=== PATIENT | female | born 1935 | race Caucasian/White ===

== ENCOUNTER 2018-12-15 14:15 | Inpatient (IN) ==
[2018-12-15 15:51] LABS: Basophils % 0.1 % (0.0-0.8); Eosinophils % 0.2 % (0.00-10.9); Hematocrit 32.3 VOL% (35.7-47.0); Hemoglobin 10.1 GM/DL (12.0-16.0); Immature Granulocytes % 0.7 %; Immature Granulocytes Absolute 0.15 #; Lymphocytes # 1.5 10*3/uL (1.4-4.0); Lymphocytes % 7.4 % (21.3-54.2); Mean Corpuscular HGB Conc 31.3 GM/DL (32-36); Mean Corpuscular Volume 76.2 FL (87-102); Neutrophils % 89.6 % (38.7-73.9); Platelet Count 479 T/CUMM (130-400); Red Blood Count 4.24 MC/CUMM (3.8-5.5); Red Cell Distribution Width 18.4 % (9.3-17.3); White Blood Count 20.4 T/CUMM (4-12)
[2018-12-15 15:52] LABS: Apearance,Urine CLOUDY (Clear); Bacteria,Urine Many /HPF (Few); Bilirubin,Urine Small mg/dL (Negative); Blood, Urine Small mg/dL (Negative); Glucose,Urine (UA) Negative (Negative); Hyaline Casts,Urine 67 /LPF (0-3); Ketones,Urine 5 mg/dL (Negative); Mucus,Urine Few /LPF (Occasional); Nitrite,Urine Positive (Negative); Protein,Urine 30 MG/DL; RBC,Urine 21 /HPF (0-4); Urine Color Amber (Yellow); Urine Specific Gravity 1.021 (1.001-1.035); WBC,Urine 113 /HPF (0-6)
[2018-12-15 16:17] LABS: Calcium 6.3 MG/DL (8.5-10.1); Osmolality,Calculated 290.4 MOS/KG (273-304)
[2018-12-15 16:26] LABS: Lymphocytes 8 % (20-55); Segmented Neutrophils 91 % (50-85); Total Cells Counted 100
[2018-12-15 16:27] LABS: Hypochromasia Slight; Microcytosis Slight; Platelet Estimate Adequate
[2018-12-15] MEDS ORDERED: cefTRIAXone 1,000 MG in SODIUM CHLORIDE 0.9% 100 ML IV STA (16:28)
[2018-12-15] MEDS ORDERED: ONDANSETRON 4 MG/2 ML VIAL IV PRN (17:05)
[2018-12-15] MEDS ORDERED: DEXTROSE 10% 250 ML BAG IV PRN (17:52)
[2018-12-15] MEDS ORDERED: GLUCAGON 1 MG VIAL IM PRN (17:52)
[2018-12-15] MEDS ORDERED: INFLUENZA VIRUS VACCINE 0.5 ML SYRINGE IM ONE (18:45)
[2018-12-15] MEDS: SODIUM CHLORIDE 0.9% 1,000 ML IV SCH (22:22)
[2018-12-16] MEDS: ACETAMINOPHEN 325 MG TABLET PO PRN (00:38)
[2018-12-16 03:58] LABS: Eosinophils # 0.1 10*3/uL (0.0-0.87); Eosinophils % 0.6 % (0.00-10.9); Hematocrit 27.9 VOL% (35.7-47.0); Hemoglobin 8.8 GM/DL (12.0-16.0); Immature Granulocytes % 0.5 %; Immature Granulocytes Absolute 0.08 #; Lymphocytes # 1.7 10*3/uL (1.4-4.0); Lymphocytes % 10.2 % (21.3-54.2); Mean Corpuscular HGB Conc 31.5 GM/DL (32-36); Mean Corpuscular Volume 75.8 FL (87-102); Mean Platelet Volume 9.3 FL (9.6-12.0); Monocytes % 3.3 % (1.7-12.7); Neutrophils % 85.4 % (38.7-73.9); Platelet Count 398 T/CUMM (130-400); Red Blood Count 3.68 MC/CUMM (3.8-5.5); White Blood Count 16.1 T/CUMM (4-12)
[2018-12-16 04:33] LABS: % Iron Saturation 15.3 % (18-50); Ferritin 267.4 ng/ml (8-252)
[2018-12-16 04:41] LABS: Albumin 1.8 G/DL (3.4-5.0); Bilirubin,Total 0.4 MG/DL (0.2-1.0); Risk Ratio 2.56; Thyroid Stimulating Hormone 1.94 uIU/ml (0.358-3.74); Total Protein 6.3 G/DL (6.4-8.3); VLDL CHOLESTEROL 34.2 MG/DL
[2018-12-16 04:44] LABS: Calcium 5.8 MG/DL (8.5-10.1)
[2018-12-16] MEDS ORDERED: CALCIUM GLUCONATE 1,000 MG in SODIUM CHLORIDE 0.9% 100 ML IV ONE (06:00)
[2018-12-16] MEDS: LEVOTHYROXINE 100 MCG TABLET PO SCH (06:05)
[2018-12-16] MEDS: INSULIN LISPRO 100 UNIT/ML SUBCUT SCH ×5 (07:12→23:21)
[2018-12-16] MEDS ORDERED: POTASSIUM CHLORIDE RIDER 20 MEQ in PREMIX 1 EACH IV PRN (08:16)
[2018-12-16] MEDS ORDERED: MAGNESIUM SULF RIDER 4 GM in PREMIX 1 EACH IV PRN (08:18)
[2018-12-16] MEDS ORDERED: ATENOLOL 25 MG TABLET PO SCH (09:00)
[2018-12-16] MEDS ORDERED: hydroCHLOROthiazide 12.5 MG CAPSULE PO SCH (09:00)
[2018-12-16] MEDS ORDERED: TERAZOSIN 10 MG CAPSULE PO SCH (09:00)
[2018-12-16] MEDS ORDERED: amLODIPine 2.5 MG TABLET PO SCH (09:00)
[2018-12-16] MEDS ORDERED: cefTRIAXone 1,000 MG in SYRINGE 1 EACH IV SCH (09:00)
[2018-12-16] MEDS: ASPIRIN EC 81 MG TABLET PO SCH (09:11)
[2018-12-16] MEDS: MULTIVITAMIN (CENTRUM) TABLET PO SCH (09:11)
[2018-12-16] MEDS: SIMVASTATIN 80 MG TABLET PO SCH (09:11)
[2018-12-16] MEDS: PANTOPRAZOLE 40 MG TABLET PO SCH (09:11)
[2018-12-16] MEDS: SERTRALINE 50 MG TABLET PO SCH (09:12)
[2018-12-16] MEDS: POTASSIUM CHLORIDE 20 MEQ TABLET PO PRN ×2 (09:13→14:07)
[2018-12-16] MEDS: CALCIUM (CARBONATE)/VITAMIN D 500 MG-200 UNIT TABLET PO SCH ×2 (09:17→23:20)
[2018-12-16] MEDS: SODIUM CHLORIDE 0.9% 1,000 ML IV SCH ×2 (09:17→19:15)
[2018-12-16] MEDS: ENOXAPARIN 30 MG/0.3 ML SYRINGE SUBCUT SCH (12:01)
[2018-12-16] MEDS ORDERED: BISACODYL 5 MG TABLET PO ONE (13:55)
[2018-12-16] MEDS ORDERED: DILTIAZEM 50 MG/10 ML VIAL IV STA (14:47)
[2018-12-16] MEDS ORDERED: SODIUM CHLORIDE 0.9% 1,000 ML IV ONE (14:48)
[2018-12-16 14:50] LABS: Calcium 6.2 MG/DL (8.5-10.1)
[2018-12-16] MEDS ORDERED: dilTIAZem Drip 125 MG/125 ML PREMIX IV ONE (15:12)
[2018-12-16 15:17] LABS: Basophils % 0.1 % (0.0-0.8); Eosinophils # 0.1 10*3/uL (0.0-0.87); Eosinophils % 0.6 % (0.00-10.9); Hematocrit 28.9 VOL% (35.7-47.0); Hemoglobin 8.9 GM/DL (12.0-16.0); Immature Granulocytes % 0.7 %; Immature Granulocytes Absolute 0.11 #; Lymphocytes # 1.7 10*3/uL (1.4-4.0); Lymphocytes % 11.1 % (21.3-54.2); Mean Corpuscular HGB Conc 30.8 GM/DL (32-36); Mean Corpuscular Volume 77.1 FL (87-102); Mean Platelet Volume 9.5 FL (9.6-12.0); Monocytes % 3.3 % (1.7-12.7); Neutrophils % 84.2 % (38.7-73.9); Platelet Count 378 T/CUMM (130-400); Red Blood Count 3.75 MC/CUMM (3.8-5.5); Red Cell Distribution Width 18.4 % (9.3-17.3); White Blood Count 15.4 T/CUMM (4-12)
[2018-12-16] MEDS ORDERED: diphenhydrAMINE CAP 25 MG CAPSULE PO PRN (15:17)
[2018-12-16] MEDS ORDERED: dilTIAZem Drip 125 MG/125 ML PREMIX IV SCH (15:30)
[2018-12-16] MEDS ORDERED: NOREPINEPHRINE 4 MG/4 ML VIAL IV ONE ×2 (15:53→17:57)
[2018-12-16] MEDS: NOREPINEPHRINE 8 MG in SODIUM CHLORIDE 0.9% 242 ML IV PRN ×3 (15:57→23:30)
[2018-12-16] MEDS ORDERED: MORPHINE 4 MG/1 ML VIAL IV PRN (16:06)
[2018-12-16] MEDS ORDERED: SODIUM CHLORIDE 0.9% 2,200 ML IV ONE (16:12)
[2018-12-16] MEDS ORDERED: AMIODARONE INJ 150 MG in DEXTROSE 5% 100 ML IV ONE (16:43)
[2018-12-16] MEDS ORDERED: ALBUMIN 25% 12.5 GM in PREMIX 1 EACH IV ONE (16:43)
[2018-12-16] MEDS ORDERED: ALBUMIN 5% 12.5 GM/250 ML VIAL IV ONE (16:44)
[2018-12-16] MEDS ORDERED: ALBUMIN 5% 12.5 GM in PREMIX 1 EACH IV ONE (16:54)
[2018-12-16] MEDS ORDERED: AMIODARONE INJ 450 MG in DEXTROSE 5% 241 ML IV SCH (17:00)
[2018-12-16] MEDS ORDERED: VASOPRESSIN 100 UNITS in SODIUM CHLORIDE 0.9% 95 ML IV PRN (18:03)
[2018-12-16] MEDS ORDERED: LACTATED RINGERS 1,000 ML IV ONE (18:03)
[2018-12-16] MEDS: MEROPENEM 500 MG in SODIUM CHLORIDE 0.9% 100 ML IV SCH (19:19)
[2018-12-16] MEDS: VANCOMYCIN INJ 1,250 MG in SODIUM CHLORIDE 0.9% 250 ML IV SCH (19:19)
[2018-12-16] MEDS ORDERED: HEPARIN/NACL 0.9% 2 UNITS/ML 500 ML IV ONE (20:40)
[2018-12-16] MEDS: MAGNESIUM OXIDE 400 MG TABLET PO SCH (23:20)
[2018-12-16] MEDS: carvediloL 3.125 MG TABLET PO SCH (23:21)
[2018-12-16] MEDS: AMIODARONE INJ 450 MG in DEXTROSE 5% 241 ML IV SCH (23:24)
[2018-12-16] MEDS: HEPARIN/NACL 0.9% 2 UNITS/ML 500 ML IV SCH (23:25)
[2018-12-17] MEDS: MEROPENEM 500 MG in SODIUM CHLORIDE 0.9% 100 ML IV SCH ×3 (03:13→18:18)
[2018-12-17 04:59] LABS: Basophils # 0.1 10*3/uL (0.0-0.2); Basophils % 0.2 % (0.0-0.8); Hematocrit 29.5 VOL% (35.7-47.0); Hemoglobin 8.9 GM/DL (12.0-16.0); Immature Granulocytes % 0.6 %; Immature Granulocytes Absolute 0.19 #; Lymphocytes # 1.1 10*3/uL (1.4-4.0); Lymphocytes % 3.5 % (21.3-54.2); Mean Corpuscular HGB Conc 30.2 GM/DL (32-36); Mean Corpuscular Volume 79.3 FL (87-102); Monocytes % 1.7 % (1.7-12.7); Platelet Count 384 T/CUMM (130-400); Red Blood Count 3.72 MC/CUMM (3.8-5.5); Red Cell Distribution Width 18.2 % (9.3-17.3); White Blood Count 30.4 T/CUMM (4-12)
[2018-12-17] MEDS: NOREPINEPHRINE 8 MG in SODIUM CHLORIDE 0.9% 242 ML IV PRN ×2 (05:03→14:04)
[2018-12-17 05:26] LABS: Albumin 1.6 G/DL (3.4-5.0); Bilirubin,Total 0.9 MG/DL (0.2-1.0); Total Protein 4.5 G/DL (6.4-8.3)
[2018-12-17 05:27] LABS: Calcium 5.2 MG/DL (8.5-10.1)
[2018-12-17 05:33] LABS: Band Neutrophils 2 % (0-10); Burr Cells Slight; Hypochromasia 1+; Lymphocytes 2 % (20-55); Ovalocytes Slight; Platelet Estimate Adequate; Segmented Neutrophils 95 % (50-85); Total Cells Counted 100
[2018-12-17] MEDS: SODIUM CHLORIDE 0.9% 1,000 ML IV SCH ×2 (05:51→15:51)
[2018-12-17] MEDS: LEVOTHYROXINE 100 MCG TABLET PO SCH (06:05)
[2018-12-17] MEDS: POTASSIUM CHLORIDE 20 MEQ TABLET PO PRN (06:07)
[2018-12-17] MEDS: AMIODARONE INJ 450 MG in DEXTROSE 5% 241 ML IV SCH ×2 (06:14→13:15)
[2018-12-17] MEDS ORDERED: CALCIUM GLUCONATE 1,000 MG in SODIUM CHLORIDE 0.9% 100 ML IV ONE (06:15)
[2018-12-17] MEDS: MAGNESIUM SULF RIDER 2 GM in PREMIX 1 EACH IV PRN (06:19)
[2018-12-17] MEDS: MAGNESIUM OXIDE 400 MG TABLET PO SCH ×2 (08:33→21:31)
[2018-12-17] MEDS: INSULIN LISPRO 100 UNIT/ML SUBCUT SCH ×4 (08:33→21:31)
[2018-12-17] MEDS: ASPIRIN EC 81 MG TABLET PO SCH (08:33)
[2018-12-17] MEDS: POTASSIUM CHLORIDE 20 MEQ TABLET PO SCH (08:33)
[2018-12-17] MEDS: SERTRALINE 50 MG TABLET PO SCH (08:33)
[2018-12-17] MEDS: SIMVASTATIN 80 MG TABLET PO SCH (08:33)
[2018-12-17] MEDS: PANTOPRAZOLE 40 MG TABLET PO SCH (08:33)
[2018-12-17] MEDS: MULTIVITAMIN (CENTRUM) TABLET PO SCH (08:33)
[2018-12-17] MEDS: CALCIUM (CARBONATE)/VITAMIN D 500 MG-200 UNIT TABLET PO SCH ×2 (08:33→21:31)
[2018-12-17] MEDS: carvediloL 3.125 MG TABLET PO SCH (08:34)
[2018-12-17] MEDS: ENOXAPARIN 30 MG/0.3 ML SYRINGE SUBCUT SCH (09:31)
[2018-12-17] MEDS: ASCORBIC ACID 500 MG TABLET PO SCH ×2 (11:50→21:32)
[2018-12-17] MEDS: DESITIN 4OZ/NYSTATIN 15 GRAM MIXTURE PASTE TOP SCH ×2 (14:04→21:40)
[2018-12-17] MEDS: ATORVASTATIN 80 MG TABLET PO SCH (21:31)
[2018-12-17] MEDS: AMIODARONE 200 MG TABLET PO SCH (21:33)
[2018-12-18] MEDS: SODIUM CHLORIDE 0.9% 1,000 ML IV SCH ×3 (01:46→20:52)
[2018-12-18] MEDS: HEPARIN/NACL 0.9% 2 UNITS/ML 500 ML IV SCH (02:15)
[2018-12-18] MEDS: MEROPENEM 500 MG in SODIUM CHLORIDE 0.9% 100 ML IV SCH ×3 (03:19→22:58)
[2018-12-18 04:08] LABS: Basophils % 0.1 % (0.0-0.8); Eosinophils # 0.1 10*3/uL (0.0-0.87); Eosinophils % 0.4 % (0.00-10.9); Hematocrit 22.6 VOL% (35.7-47.0); Immature Granulocytes % 0.6 %; Immature Granulocytes Absolute 0.13 #; Lymphocytes # 1.6 10*3/uL (1.4-4.0); Lymphocytes % 7.4 % (21.3-54.2); Mean Corpuscular Volume 80.1 FL (87-102); Mean Platelet Volume 8.9 FL (9.6-12.0); Monocytes % 2.7 % (1.7-12.7); Neutrophils % 88.8 % (38.7-73.9); Platelet Count 270 T/CUMM (130-400); Red Blood Count 2.82 MC/CUMM (3.8-5.5); Red Cell Distribution Width 18.5 % (9.3-17.3); White Blood Count 21.7 T/CUMM (4-12)
[2018-12-18 04:33] LABS: Hypochromasia 1+; Lymphocytes 5 % (20-55); Ovalocytes Slight; Platelet Estimate Adequate; Segmented Neutrophils 92 % (50-85); Total Cells Counted 100
[2018-12-18 04:34] LABS: Blood Urea Nitrogen 26 MG/DL (7-18); Estimated Glom Filtration Rate 64 ML/MIN; Glucose 116 MG/DL (74-106); Osmolality,Calculated 293.7 MOS/KG (273-304)
[2018-12-18 04:40] LABS: Calcium 5.6 MG/DL (8.5-10.1)
[2018-12-18 04:41] LABS: Troponin I 0.112 NG/ML (0.00-0.045)
[2018-12-18] MEDS ORDERED: CALCIUM GLUCONATE 1,000 MG in SODIUM CHLORIDE 0.9% 100 ML IV ONE (05:30)
[2018-12-18] MEDS: AMIODARONE INJ 450 MG in DEXTROSE 5% 241 ML IV SCH ×2 (05:46→20:44)
[2018-12-18] MEDS: LEVOTHYROXINE 100 MCG TABLET PO SCH (06:15)
[2018-12-18] MEDS: POTASSIUM CHLORIDE 20 MEQ TABLET PO PRN (06:15)
[2018-12-18] MEDS: VANCOMYCIN INJ 1,250 MG in SODIUM CHLORIDE 0.9% 250 ML IV SCH (06:50)
[2018-12-18] MEDS: MAGNESIUM SULF RIDER 2 GM in PREMIX 1 EACH IV PRN (06:52)
[2018-12-18] MEDS: INSULIN LISPRO 100 UNIT/ML SUBCUT SCH ×3 (07:53→17:26)
[2018-12-18] MEDS ORDERED: MAGNESIUM SULF RIDER 4 GM in PREMIX 1 EACH IV ONE ×2 (07:55→09:26)
[2018-12-18] MEDS: ASCORBIC ACID 500 MG TABLET PO SCH ×2 (09:04→20:44)
[2018-12-18] MEDS: MAGNESIUM OXIDE 400 MG TABLET PO SCH ×2 (09:04→20:44)
[2018-12-18] MEDS: SERTRALINE 50 MG TABLET PO SCH (09:04)
[2018-12-18] MEDS: AMIODARONE 200 MG TABLET PO SCH ×2 (09:04→20:44)
[2018-12-18] MEDS: PANTOPRAZOLE 40 MG TABLET PO SCH (09:04)
[2018-12-18] MEDS: CALCIUM (CARBONATE)/VITAMIN D 500 MG-200 UNIT TABLET PO SCH ×2 (09:04→20:43)
[2018-12-18] MEDS: ASPIRIN EC 81 MG TABLET PO SCH (09:04)
[2018-12-18] MEDS: POTASSIUM CHLORIDE 20 MEQ TABLET PO SCH ×4 (09:04→17:44)
[2018-12-18] MEDS: MULTIVITAMIN (CENTRUM) TABLET PO SCH (09:04)
[2018-12-18] MEDS: DESITIN 4OZ/NYSTATIN 15 GRAM MIXTURE PASTE TOP SCH ×2 (09:05→20:44)
[2018-12-18] MEDS: ENOXAPARIN 40 MG/0.4 ML SYRINGE SUBCUT SCH (09:05)
[2018-12-18] MEDS ORDERED: ALBUTEROL/IPRATROPIUM 3 ML NEB RESP TX PRN (11:30)
[2018-12-18] MEDS: LEVOFLOXACIN INJ 500 MG in PREMIX 1 EACH IV SCH (12:55)
[2018-12-18] MEDS: carvediloL 3.125 MG TABLET PO SCH (17:44)
[2018-12-18] MEDS: ATORVASTATIN 80 MG TABLET PO SCH (20:44)
[2018-12-18] MEDS: ACETAMINOPHEN 325 MG TABLET PO PRN (20:44)
[2018-12-19] MEDS: INSULIN LISPRO 100 UNIT/ML SUBCUT SCH ×3 (00:34→11:31)
[2018-12-19] MEDS: SODIUM CHLORIDE 0.9% 1,000 ML IV SCH (00:36)
[2018-12-19 05:06] LABS: Basophils % 0.1 % (0.0-0.8); Eosinophils # 0.2 10*3/uL (0.0-0.87); Eosinophils % 1.1 % (0.00-10.9); Hematocrit 24.5 VOL% (35.7-47.0); Hemoglobin 7.2 GM/DL (12.0-16.0); Immature Granulocytes % 0.7 %; Immature Granulocytes Absolute 0.12 #; Mean Corpuscular HGB Conc 29.4 GM/DL (32-36); Mean Corpuscular Volume 82.2 FL (87-102); Mean Platelet Volume 9.2 FL (9.6-12.0); Monocytes % 3.1 % (1.7-12.7); Platelet Count 264 T/CUMM (130-400); Red Blood Count 2.98 MC/CUMM (3.8-5.5); Red Cell Distribution Width 18.9 % (9.3-17.3); White Blood Count 16.2 T/CUMM (4-12)
[2018-12-19 05:31] LABS: Calcium 6.1 MG/DL (8.5-10.1); Osmolality,Calculated 293.6 MOS/KG (273-304)
[2018-12-19] MEDS: LEVOTHYROXINE 100 MCG TABLET PO SCH (06:34)
[2018-12-19] MEDS: MEROPENEM 500 MG in SODIUM CHLORIDE 0.9% 100 ML IV SCH (06:34)
[2018-12-19] MEDS: LEVOFLOXACIN INJ 500 MG in PREMIX 1 EACH IV SCH (08:46)
[2018-12-19] MEDS ORDERED: FUROSEMIDE 40 MG/4 ML VIAL IV ONE (08:54)
[2018-12-19] MEDS: carvediloL 3.125 MG TABLET PO SCH (09:27)
[2018-12-19] MEDS: PANTOPRAZOLE 40 MG TABLET PO SCH (09:27)
[2018-12-19] MEDS: MAGNESIUM OXIDE 400 MG TABLET PO SCH (09:27)
[2018-12-19] MEDS: CALCIUM (CARBONATE)/VITAMIN D 500 MG-200 UNIT TABLET PO SCH (09:27)
[2018-12-19] MEDS: SERTRALINE 50 MG TABLET PO SCH (09:27)
[2018-12-19] MEDS: ASPIRIN EC 81 MG TABLET PO SCH (09:27)
[2018-12-19] MEDS: AMIODARONE 200 MG TABLET PO SCH (09:27)
[2018-12-19] MEDS: MULTIVITAMIN (CENTRUM) TABLET PO SCH (09:27)
[2018-12-19] MEDS: POTASSIUM CHLORIDE 20 MEQ TABLET PO SCH (09:27)
[2018-12-19] MEDS: ASCORBIC ACID 500 MG TABLET PO SCH (09:28)
[2018-12-19] MEDS: ENOXAPARIN 40 MG/0.4 ML SYRINGE SUBCUT SCH (09:34)
[2018-12-19] MEDS ORDERED: TUBERCULIN SKIN TEST 0.1 ML SYRINGE INTRADERM ONE (09:35)
[2018-12-19] MEDS: DESITIN 4OZ/NYSTATIN 15 GRAM MIXTURE PASTE TOP SCH (10:43)
[2018-12-19 11:36] VITALS: BP 172/77
== END 2018-12-19 16:11 | DRG 871 ==
LOC: EDUNIT# → EDBD → N.ED 14:15 → N.EDINP 17:04 → SUATTDRO 17:04 → N.2E 17:39 → N.TELES 12-16 15:21 → N.ICU 12-16 16:15 → N.4E 12-18 14:16
PROVIDERS: ADMIT Internal Medicine; ATTEND Internal Medicine